=== PATIENT | female | born 1975 | race Hispanic/Latino ===

== ENCOUNTER 2023-01-13 08:49 | Outpatient (CLI) | payer OTHER | END 2023-01-13 08:50 | disposition home or self-care (01) | LOC: TBSIIMAG 08:49 | PROVIDERS: ATTEND Physician Assistant Surgical | DX: M25.561 Pain in right knee (principal); M23.91 Unspecified internal derangement of right knee; M17.11 Unilateral primary osteoarthritis, right knee; M23.203 Derangement of unspecified medial meniscus due to old tear or injury, right knee ==